=== PATIENT | female | born 1995 | race Caucasian/White ===

== ENCOUNTER 2019-02-13 11:46 | Emergency (ER) | payer BC ==
[~2019-02-13] VITALS: Ht 157.5 cm; Wt 73.0 kg
[2019-02-13 12:06] VITALS: Ht 157.5 cm; Wt 73.0 kg
[2019-02-13 15:11] VITALS: BP 117/71
== END 2019-02-13 15:11 | disposition home or self-care (01) ==
LOC: ED 11:46
DX: N83.201 Unspecified ovarian cyst, right side (principal); M25.551 Pain in right hip; R10.9 Unspecified abdominal pain